=== PATIENT | female | born 1955 | race Caucasian/White ===

== ENCOUNTER 2017-12-23 13:48 | Outpatient (CLI) | payer OTHER ==
--- NOTE | 2017-12-23 14:44 | RAD ---
PA VIEW OF THE CHEST WITH 3 VIEWS OF THE RIGHT CHEST WALL. INDICATION: Right rib pain without history of injury. FINDINGS: Lungs are clear. Cardiomediastinal silhouette is within normal limits. No pleural effusion or pneum othorax is evident. No displaced right-sided rib fracture is evident. IMPRESSION: No acute abnormality. POS: [facility]
== END 2017-12-23 13:49 | disposition home or self-care (01) ==
LOC: NAV RAD 13:48
PROVIDERS: ATTEND Family Medicine
DX: R07.81 Pleurodynia (principal)

== ENCOUNTER 2017-12-26 07:49 | Outpatient (CLI) | payer OTHER ==
--- NOTE | 2017-12-26 12:58 | ULT ---
RIGHT UPPER QUADRANT ULTRASOUND: HISTORY: Liver cysts. COMPARISON: None. CORRELATION: Previous ultrasound report from 10/22/2017. TECHNIQUE: Utilizing a Multi-Hertz transducer, sonographic imaging of the right upper quadrant was performed in the longitudinal and transverse plane. FINDINGS: In the right hepatic lobe, there is an anechoic focus measuring 2.2 x 2.3 x 2.3 cm, which may represe nt a septated cyst. The remainder of the hepatic parenchyma is unremarkable. No solid mass of the liver. The contour of the hepatic margin is maintained. The right hepatic lobe measures 15 cm. No sonographic evidence of cholelithiasis, gallbladder wall thickening, or pericholecystic fluid. Ne gative Howell sign. Mild right renal cortical thinning. No hydronephrosis. The right kidney measures 9.9 cm in maximum dimension. Common bile duct diameter is 0.3 cm. IMPRESSION: Septated cyst in the right hepatic lobe. POS: [facility]
== END 2017-12-26 07:50 | disposition home or self-care (01) ==
LOC: NAV ULT 07:49
PROVIDERS: ATTEND Family Medicine
DX: K76.89 Other specified diseases of liver (principal)
CPT/HCPCS: 76705